=== PATIENT | male | born 1995 | race Hispanic/Latino ===

== ENCOUNTER 2024-09-04 18:42 | Emergency (ER) | payer BC, SELFPAY | END 2024-09-04 20:22 | disposition home or self-care (01) | LOC: CSHERS 18:42 → EEVIPCON 18:42 → CSHERS 20:22 | DX: Z04.1 Encounter for examination and observation following transport accident (principal); F17.290 Nicotine dependence, other tobacco product, uncomplicated | CPT/HCPCS: 99282 ==